=== PATIENT | female | born 1945 | race Caucasian/White ===

== ENCOUNTER → 2016-10-01 | Outpatient (CLI) | payer OTHER ==
--- NOTE | ~2016-10-01 | MY25 ---
[facility] A Service of [facility] RADIOLOGY TEXT RESULTS PATIENT: CHASITY SANTANA LOCATION: [facility] SAULT : 47 UNIT #: [id number] AGE: [address]: Shauna Ramos NP SEX: F ORDER DR: [id number] [facility]. [place], [place] [address] [id number] O MR#: [id number] Acc #: [id number] NAME: CHASITY SANTANA : 1945 SEX: F STUDY DATE/TIME: 10/01/2016 14:58 UNIT: [facility] ROOM: STUDY DESCRIPTION: [facility] DIAG W/ CAD UNI RT Attending Physician: Shauna Ramos A.P.R.N. Ordering Physician: Shauna Ramos A.P.R.N. Primary Care Physician: Giselle Fisher M.D. MEDICAL IMAGING REPORT This report is preliminary unless electronic signature is present EXAM Right digital diagnostic mammogram INDICATIONS Previous ultrasound guided core biopsy in the right breast. 6-month followup. PROCEDURE CC, MLO and true lateral views of the right breast obtained on a digital mammography unit and approved CAD device utilized. COMPARISON Screening mammogram from 04/02/2016 FINDINGS There is a biopsy marker clip upper outer quadrant of the right breast immediately adjacent to an area of asymmetric tissue that measures approximately 7 mm. It is unchanged from previous study. There is no new dominant mass or suspicious calcification. Scattered fibroglandular density. IMPRESSION Benign right digital diagnostic mammogram. Suggest patient continue with yearly screening. Patient's over the age of 40 are entered into a reminder system with target due date for the next mammogram. A result letter will be sent to the patient. BIRADS: 2 Benign findings. Dictated by... [facility] A Service [facility] RADIOLOGY TEXT RESULTS PATIENT: CHASITY SANTANA LOCATION: [facility] SAULT : 47 UNIT #: [id number] AGE: [address]: Shauna Ramos NP SEX: F ORDER DR: Valeriano Linder M.D. THIS IS AN ELECTRONICALLY VERIFIED REPORT Valeriano Linder M.D. at 10/04/2016 1:56 PM EED/to TD: 10/01/2016 21:27 JOB #: [id number] MEDICAL IMAGING REPORT Page 1 of 1 COPY
== END | disposition home or self-care (01) ==
LOC: CMAM 14:30
DX: N63 Unspecified lump in breast (principal)
CPT/HCPCS: G0206